=== PATIENT | female | born 1985 | race Two or more races ===

== ENCOUNTER 2019-07-05 22:28 | Emergency (ER) | payer SELFPAY ==
[~2019-07-05] VITALS: Ht 170.2 cm; Wt 81.0 kg
[2019-07-05] MEDS ORDERED: IPRATRPIUM/ALBUTEROL 0.5/2.5MG 3 ML NEBU. NEB ONE (23:00)
[2019-07-05] MEDS ORDERED: predniSONE 10 MG TABLET PO ONE (23:00)
[2019-07-05] MEDS ORDERED: HYDROcodone/APAP 5/325MG 1 TAB TABLET PO ONE (23:00)
[2019-07-05 23:20] LABS: INFLUENZA A PATIENT NEGATIVE (NEGATIVE); INFLUENZA B PATIENT NEGATIVE (NEGATIVE)
[2019-07-06] MEDS ORDERED: ALBU2.5V8 IH (00:02)
[2019-07-06] MEDS ORDERED: PRED50TA PO (00:02)
--- NOTE | 2019-07-06 00:02 | PHYS DOC ---
Past Medical History Past Medical History: Asthma Past Surgical History: No Surgical History Smoking Status: Never Smoker Alcohol Use: None Adult General Chief Complaint Chief Complaint: SHORTNESS OF BREATH [facility] Patient is a 33 year old South Korean-speaking female presents with nasal congestion rhinorrhea, nonproductive cough, shortness of breath with occasional wheezing and fever 100.3. Chest wall pain with cough. Symptoms began yesterday. Patient has history of asthma. No chills, sweats, nausea or vomiting. No other acute symptoms or complaints. Family members assisted with translation. Patient is a non-smoker does not participate in routine healthcare and does not have a primary care provider. [] Review of Systems Review of Systems Review of symptoms as per [facility]. All other review of symptoms are negative. All other systems were reviewed and found to be within normal limits, except as documented in this note. Current Medications Current Medications Current Medications Medications (Trade) Dose Ordered Sig/Clara Start Time Stop Time Status Last Admin Dose Admin Acetaminophen/ Hydrocodone Bitart (Lortab 5/325) 1 tab 1X ONCE 07/05/19 23:00 07/05/19 23:01 DC 07/05/19 23:24 1 TAB Albuterol/ Ipratropium (Duoneb) 3 ml 1X ONCE 07/05/19 23:00 07/05/19 23:01 DC Prednisone (Prednisone) 50 mg 1X ONCE 07/05/19 23:00 07/05/19 23:01 DC 07/05/19 23:24 50 MG Allergies Allergies Allergies Coded Allergies Type Severity Reaction Last Updated Verified No Known Drug Allergies 07/05/19 No Physical Exam Physical Exam Constitutional: Well developed, well nourished. [] HENT: Normocephalic, atraumatic, bilateral external ears normal, oropharynx moist, no oral exudates, nose, congestion clear rhinorrhea. [] Eyes: PERRLA, EOMI, conjunctiva normal. [] Neck: Normal range of motion, supple. [] Cardiovascular:Heart rate regular rhythm, no murmur [] Lungs & Thorax: Bilateral breath sounds clear to auscultation, occasional wheeze [] Abdomen: Bowel sounds normal. [] Skin: Warm, dry. [] Back: No tenderness. [] Extremities: No tenderness, no edema. [] Neurologic: Alert and oriented, normal motor function, normal sensory function, no focal deficits noted. [] Psychologic: Affect normal, judgement normal, mood normal. [] Current Patient Data Vital Signs Vital Signs Date Time Temp Pulse Resp B/P (MAP) Pulse Ox O2 Delivery O2 Flow Rate FiO2 07/05/19 23:40 97 Room Air 07/05/19 23:24 20 07/05/19 22:37 100.1 120 205/109 (141) 100.1 Lab Values Laboratory Tests Test 07/05/19 22:55 07/05/19 23:27 Influenza Type A Antigen Negative (NEGATIVE) Influenza Type B Antigen Negative (NEGATIVE) POC Urine HCG, Qualitative Hcg negative (Negative) EKG EKG [] Radiology/Procedures Radiology/Procedures [Chest x-ray: No acute cardiopulmonary disease on preliminary ED review] Course & Med Decision Making Course & Med Decision Making Pertinent Labs and Imaging studies reviewed. (See chart for details) [Patient with viral respiratory tract infection with mild asthma exacerbation wi thout significant respiratory compromise. Prednisone breathing treatment pain medication given. Chest x-ray unremarkable. Will treat supportively with PCP follow-up recommended. Patient's blood pressure noted to be elevated. She denies history of hypertension. Patient instructed to follow-up with PCP for further blood pressure monitoring.] Dragon Disclaimer Dragon Disclaimer This electronic medical record was generated, in whole or in part, using a voice recognition dictation system. Departure Departure Impression: Primary Impression: Upper respiratory infection Additional Impression: Acute asthma exacerbation Disposition: HOME, SELF-CARE Condition: STABLE Referrals: NO PCP (PCP) Patient Instructions: Asthma, Adult, [id number], Upper Respiratory Infection, Adult, [id number] Additional Instructions: You were evaluated in the emergency department for shortness of breath, chest pain, fever and cough. Your exam is consistent with a viral respiratory tract infection with asthma exacerbation. Please take newly prescribed medications as directed and follow-up with local primary care physician for reevaluation of blood pressure Scripts Albuterol Sulfate (PROAIR HFA INHALER) 8.5 Gm Hfa.aer.ad 2 PUFF IH PRN Q4-6HRS PRN for wheezing for 21 Days, #1 INHALER 0 Refills Prov: JUAN WILSON DO 07/06/19 Prednisone (PREDNISONE) 50 Mg Tablet 1 TAB PO DAILY, #5 TAB Prov: JUAN WILSON DO 07/06/19 Problem Qualifiers JUAN WILSON DO Jul 06, 2019 00:02
--- NOTE | 2019-07-06 00:07 | RAD ---
CHEST AP ONLY History: Chest pain Comparison: None. Findings: No consolidation or pleural effusion. Normal heart size. No pneumothorax. Impression: 1. No acute cardiopulmonary process. Electronically signed by: Michael Mondragon DO (07/06/2019 12:04 AM) [id number]
[2019-07-06 00:15] VITALS: BP 183/88
--- NOTE | 2019-07-06 01:20 | EKG ---
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
== END 2019-07-06 00:25 | disposition home or self-care (01) ==
LOC: ER 22:28
DX: J06.9 Acute upper respiratory infection, unspecified (principal); J45.901 Unspecified asthma with (acute) exacerbation; R09.81 Nasal congestion; R05 Cough; R06.02 Shortness of breath; R07.89 Other chest pain
CPT/HCPCS: 71045; 81025; 87804; 93005; 94640; 99285; J7512

== ENCOUNTER 2021-03-01 14:23 | Emergency (ER) | payer SELFPAY ==
[~2021-03-01] VITALS: Ht 162.6 cm; Wt 97.1 kg
[~2021-03-01 14:23] MED LIST: ALBU2.5V8 IH; PRED50TA PO
[2021-03-01] MEDS ORDERED: ASPIRIN 325 MG TABLET PO ONE (16:45)
[2021-03-01] MEDS ORDERED: NITROGLYCERIN SUBLINGUAL 0.4 MG BOTTLE OF 25. SL PRN (16:45)
[2021-03-01 17:00] LABS: BASO # 0.1 x10^3/uL (0.0-0.2); BASO % 1 % (0-3); EOS # 0.4 x10^3/uL (0.0-0.7); EOS % 3 % (0-3); HEMATOCRIT 41.8 % (36.0-47.0); HEMOGLOBIN 13.8 g/dL (12.0-15.5); LYMPH # 4.1 x10^3/uL (1.0-4.8); LYMPH % 33 % (24-48); MEAN CORPUSCULAR HEMOGLOBIN 27 pg (25-35); MEAN CORPUSCULAR HGB CONC 33 g/dL (31-37); MEAN CORPUSCULAR VOLUME 82 fL (79-100); MONO # 0.4 x10^3/uL (0.0-1.1); MONO % 3 % (0-9); NEUT # 7.5 x10^3/uL (1.8-7.7); NEUT % 60 % (31-73); PLATELET COUNT 349 x10^3/uL (140-400); RED BLOOD COUNT 5.13 x10^6/uL (3.50-5.40); RED CELL DISTRIBUTION WIDTH 15.2 % (11.5-14.5); WHITE BLOOD COUNT 12.4 x10^3/uL (4.0-11.0)
[2021-03-01 17:23] LABS: CALCIUM 9.5 mg/dL (8.5-10.1); CREATININE 0.7 mg/dL (0.6-1.0); GFR 94.7; POTASSIUM 3.6 mmol/L (3.5-5.1)
[2021-03-01 17:31] LABS: ALBUMIN 4.1 g/dL (3.4-5.0); ALBUMIN/GLOBULIN RATIO 0.7 (1.0-1.7); MAGNESIUM 2.2 mg/dL (1.8-2.4); TOTAL BILIRUBIN 0.3 mg/dL (0.2-1.0); TOTAL PROTEIN 9.6 g/dL (6.4-8.2)
[2021-03-01 18:23] LABS: BILIRUBIN,URINE NEGATIVE (NEG); CLARITY,URINE CLEAR; COLOR,URINE YELLOW; NITRITE,URINE NEGATIVE (NEG); PH,URINE 6.5 (<5.0-8.0); PROTEIN,URINE NEGATIVE (NEG-TRACE); UROBILINOGEN,URINE 0.2 mg/dL (0.2 mg/dL)
[2021-03-01 18:25] LABS: BACTERIA,URINE FEW /HPF (0-FEW); BARBITURATES NEG (NEG); BENZODIAZEPINES NEG (NEG); CANNABINOIDS POS (NEG); COCAINE NEG (NEG); METHADONE NEG (NEG); OPIATES NEG (NEG); PHENCYCLIDINE NEG (NEG)
[2021-03-01 18:26] LABS: AMPHETAMINE/METHAMPHETAMINE NEG (NEG)
--- NOTE | 2021-03-01 18:39 | RAD ---
EXAMINATION: Chest radiograph. VIEWS: Single view COMPARISON: 07/05/2019 INDICATION:35 years, Female, chest pain. FINDINGS: Normal cardiomediastinal silhouette. No focal consolidation. No pleural effusion or pneumothorax. No acute osseous process. IMPRESSION: No acute cardiopulmonary process. Electronically signed by: Hilton Molina MD (03/01/2021 6:37 PM) [facility]
[2021-03-01] MEDS ORDERED: CEPH500T PO (18:52)
[2021-03-01] MEDS ORDERED: AMLO-187 PO (18:53)
--- NOTE | 2021-03-01 18:53 | PHYS DOC ---
Past Medical History Past Medical History: Asthma, Hypertension Past Surgical History: No Surgical History Smoking Status: Never Smoker Alcohol Use: None General Adult EDM: Chief Complaint: CHEST PAIN HPI: HPI: Patient is a 35 year old female with a history of uncontrolled hypertension, who presents the ED today to be evaluated for multiple complaints. Patient is Urdu-speaking and interpretation is provided by the cousin. Cousin states patient went to [facility] to be evaluated for shortness of breath and chest" discomfort", symptoms began today. Patient rates the chest discomfort at 6 out of 10. Denies any chest discomfort radiating to anywhere in her chest. She states the chest discomfort is only on the left side. Patient states while she was at [facility] her blood pressure was taken which was 207/125, she has history of hypertension and has not taken her blood pressure medicine for months. Patient states she does not have pain it is just chest discomfort Review of Systems: Review of Systems: Constitutional: Denies fever or chills. [] Eyes: Denies change in visual acuity. [] HENT: Denies nasal congestion or sore throat. [] Respiratory: Denies cough or shortness of breath. [] Cardiovascular: Reports chest discomfort and high blood pressure GI: Denies abdominal pain, nausea, vomiting, bloody stools or diarrhea. [] : Denies dysuria. [] Musculoskeletal: Denies back pain or joint pain. [] Integument: Denies rash. [] Neurologic: Denies headache, focal weakness or sensory changes. [] Psychiatric: Denies depression or anxiety. [] Heart Score: C/O Chest Pain: Yes HEART Score for Chest Pain: HEART Score for Chest Pain Response (Comments) Value History Slighlty/Non-Suspicious 0 ECG Normal 0 Age < 45 0 Risk Factors 1 or 2 Risk Factors 1 Troponin < Normal Limit 0 Total 1 Risk Factors: Risk Factors: DM, Current or recent (<one month) smoker, HTN, HLP, family history of CAD, obesity. Risk Scores: Score 0 - 3: 2.5% MACE over next 6 weeks - Discharge Home Score 4 - 6: 20.3% MACE over next 6 weeks - Admit for Clinical Observation Score 7 - 10: 72.7% MACE over next 6 weeks - Early Invasive Strategies Current Medications: Current Medications Medications (Trade) Dose Ordered Sig/Clara Start Time Stop Time Status Last Admin Dose Admin Aspirin (Kelsey Aspirin) 325 mg 1X ONCE 03/01/21 16:45 03/01/21 16:46 DC 03/01/21 17:51 325 MG Nitroglycerin (Nitrostat) 0.4 mg PRN Q5MIN PRN 03/01/21 16:45 03/02/21 16:44 03/01/21 17:55 0.4 MG Allergies: Allergies: Allergies Coded Allergies Type Severity Reaction Last Updated Verified No Known Drug Allergies 07/05/19 No Physical Exam: PE: Constitutional: Well developed, well nourished, no acute distress, non-toxic appearance. [] HENT: Normocephalic, atraumatic, bilateral external ears normal, oropharynx moist, no oral exudates, nose normal. [] Eyes: PERRLA, EOMI, conjunctiva normal, no discharge. [] Neck: Normal range of motion, no tenderness, supple, no stridor. [] Cardiovascular:Heart rate regular rhythm, no murmur [] Lungs & Thorax: Bilateral breath sounds clear to auscultation [] Abdomen: Bowel sounds normal, soft, no tenderness, no masses, no pulsatile masses. [] Skin: Warm, dry, no erythema, no rash. [] Back: No tenderness, no CVA tenderness. [] Extremities: No tenderness, no cyanosis, no clubbing, ROM intact, no edema. [] Neurologic: Alert and oriented X 3, normal motor function, normal sensory function, no focal deficits noted. [] Psychologic: Affect normal, judgement normal, mood normal. [] Current Patient Data: Labs: Laboratory Tests Test 03/01/21 16:47 03/01/21 18:05 03/01/21 18:12 White Blood Count 12.4 x10^3/uL (4.0-11.0) H Red Blood Count 5.13 x10^6/uL (3.50-5.40) Hemoglobin 13.8 g/dL (12.0-15.5) Hematocrit 41.8 % (36.0-47.0) Mean Corpuscular Volume 82 fL (79-100) Mean Corpuscular Hemoglobin 27 pg (25-35) Mean Corpuscular Hemoglobin Concent 33 g/dL (31-37) Red Cell Distribution Width 15.2 % (11.5-14.5) H Platelet Count 349 x10^3/uL (140-400) Neutrophils (%) (Auto) 60 % (31-73) Lymphocytes (%) (Auto) 33 % (24-48) Monocytes (%) (Auto) 3 % (0-9) Eosinophils (%) (Auto) 3 % (0-3) Basophils (%) (Auto) 1 % (0-3) Neutrophils # (Auto) 7.5 x10^3/uL (1.8-7.7) Lymphocytes # (Auto) 4.1 x10^3/uL (1.0-4.8) Monocytes # (Auto) 0.4 x10^3/uL (0.0-1.1) Eosinophils # (Auto) 0.4 x10^3/uL (0.0-0.7) Basophils # (Auto) 0.1 x10^3/uL (0.0-0.2) Sodium Level 141 mmol/L (136-145) Potassium Level 3.6 mmol/L (3.5-5.1) Chloride Level 101 mmol/L (98-107) Carbon Dioxide Level 27 mmol/L (21-32) Anion Gap 13 (6-14) Blood Urea Nitrogen 11 mg/dL (7-20) Creatinine 0.7 mg/dL (0.6-1.0) Estimated GFR (Cockcroft-Gault) 94.7 BUN/Creatinine Ratio 16 (6-20) Glucose Level 116 mg/dL (70-99) H Calcium Level 9.5 mg/dL (8.5-10.1) Magnesium Level 2.2 mg/dL (1.8-2.4) Total Bilirubin 0.3 mg/dL (0.2-1.0) Aspartate Amino Transferase (AST) 17 U/L (15-37) Alanine Aminotransferase (ALT) 32 U/L (14-59) Alkaline Phosphatase 127 U/L (46-116) H Troponin I High Sensitivity < 4 ng/L (4-50) L UM-Yts-M-Type Natriuretic Peptide 57 pg/mL (0-124) Total Protein 9.6 g/dL (6.4-8.2) H Albumin 4.1 g/dL (3.4-5.0) Albumin/Globulin Ratio 0.7 (1.0-1.7) L Thyroid Stimulating Hormone (TSH) 0.761 uIU/mL (0.358-3.74) Urine Collection Type Unknown Urine Color Yellow Urine Clarity Clear Urine pH 6.5 (<5.0-8.0) Urine Specific [place] 1.015 (1.000-1.030) Urine Protein Negative mg/dL (NEG-TRACE) Urine Glucose (UA) Negative mg/dL (NEG) Urine Ketones (Stick) Negative mg/dL (NEG) Urine Blood Trace (NEG) Urine Nitrite Negative (NEG) Urine Bilirubin Negative (NEG) Urine Urobilinogen Dipstick 0.2 mg/dL (0.2 mg/dL) Urine Leukocyte Esterase Small (NEG) Urine RBC 1-2 /HPF (0-2) Urine WBC 5-10 /HPF (0-4) Urine Squamous Epithelial Cells Few /LPF Urine Bacteria Few /HPF (0-FEW) Urine Mucus Mod /LPF Urine Opiates Screen Neg (NEG) Urine Methadone Screen Neg (NEG) Urine Barbiturates Neg (NEG) Urine Phencyclidine Screen Neg (NEG) Urine Amphetamine/Methamphetamine Neg (NEG) Urine Benzodiazepines Screen Neg (NEG) Urine Cocaine Screen Neg (NEG) Urine Cannabinoids Screen Pos (NEG) Urine Ethyl Alcohol Neg (NEG) POC Urine HCG, Qualitative Hcg negative (Negative) Laboratory Tests 03/01/21 16:47 Laboratory Tests 03/01/21 16:47 Vital Signs: Vital Signs Date Time Temp Pulse Resp B/P (MAP) Pulse Ox O2 Delivery O2 Flow Rate FiO2 03/01/21 17:55 84 167/102 03/01/21 16:30 98.0 16 98 Room Air 98.0 EKG: EK interpreted by Dr. Michael sinus rhythm heart rate 81 no STEMI [] Radiology/Procedures: Radiology/Procedures: []PROCEDURE: PORTABLE CHEST 1V EXAMINATION: Chest radiograph. VIEWS: Single view COMPARISON: 07/05/2019 INDICATION:35 years, Female, chest pain. FINDINGS: Normal cardiomediastinal silhouette. No focal consolidation. No pleural effusion or pneumothorax. No acute osseous process. IMPRESSION: No acute cardiopulmonary process. Electronically signed by: Chris Molina MD (03/01/2021 6:37 PM) [facility] DICTATED and SIGNED BY: CHRIS MOLINA MD DATE: 03/01/21 [id number] 0 Course & Med Decision Making: Course & Med Decision Making Pertinent Labs and Imaging studies reviewed. (See chart for details) This a 35-year-old female patient presented to the ED today complaining of chest discomfort, shortness of breath, symptoms began today. She was seen at [facility] and her blood pressure was 207/125 and he was sent to the ED. Has histor y of hypertension currently not on any medication. Vitals on arrival to the ED temperature 98.0, heart rate 82, O2 sats 98% on room air, blood pressure 173/101 Chest x-ray interpreted by radiologist is negative for any acute findings. CBC with a WBC of 11.4, urine positive for UTI, CMP with nothing really acute. EKG is negative. Patient denies chest pain, she states is just some discomfort in her chest when she takes a deep breath. She was discharged home. She has follow-up with [facility]. She is supposed to be on blood pressure medicine. The last time she took blood pressure medicine was months ago when she was . I started her on amlodipine and instructed her to follow-up with [facility] in the course of this week or next week. She was discharged with cephalexin for UTI Dayne Disclaimer: Dayne Disclaimer: This electronic medical record was generated, in whole or in part, using a voice recognition dictation system. Departure Departure Impression: Primary Impression: Urinary tract infection Qualified Codes: N39.0 - Urinary tract infection, site not specified Additional Impression: Shortness of breath Disposition: 01 HOME / SELF CARE / HOMELESS Condition: STABLE Referrals: NO PCP (PCP) Follow-up with your doctor in 1 week Patient Instructions: Shortness of Breath, Qgyd-mi-Sxif, Urinary Tract Infection Additional Instructions: You were evaluated in the emergency room and noted to have high blood pressure, we put on blood pressure medicine. Please follow-up with [facility] for management of your blood pressure as soon as you can. You also have urinary tract infection, complete the prescribed antibiotics. Scripts Amlodipine Besylate (AMLODIPINE BESYLATE) 10 Mg Tablet 10 MG PO DAILY, #14 TAB Prov: DALE KIM DIRECTOR TRANSLATION 03/01/21 Cephalexin (CEPHALEXIN) 500 Mg Tablet 1 TAB PO BID, #14 TAB Prov: DALE KIM DIRECTOR TRANSLATION 03/01/21 MUTDALE QUINTANILLA APRN Mar 01, 2021 18:53
[2021-03-01 18:55] VITALS: BP 156/108
--- NOTE | 2021-03-02 05:50 | EKG ---
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
== END 2021-03-01 19:00 | disposition home or self-care (01) ==
LOC: ER 14:23
DX: R07.89 Other chest pain (principal); J45.909 Unspecified asthma, uncomplicated; I10 Essential (primary) hypertension
CPT/HCPCS: 36415; 71045; 80053; 80307; 81001; 81025; 83735; 83880; 84443; 84484; 85025; 87086; 93005; 99285-25